=== PATIENT | male | born 1940 | race Caucasian/White ===

== ENCOUNTER 2025-02-18 18:32 | Inpatient (IN) | payer OTHER, SELFPAY ==
[2025-02-18] VITALS (20 sets, daily range): BP systolic 112–148; BP diastolic 81–112; BMI 24.7
[2025-02-18 15:37] LABS: Hematocrit 36.9 % (37.0-47.0); Hemoglobin 12.2 g/dL (12.0-16.0); Mean Corp Hgb Conc. 33.1 g/dL (33.0-37.0); Mean Corpuscular Volume 82.2 fL (81.0-99.0); Nucleated Red Blood Cells % 0 %; Platelet Count 285 10^3/uL (130-400); Red Cell Dist. Width 16.3 % (11.5-14.5)
[2025-02-18 15:51] LABS: INR 3.65; PT 36.0 Sec (11.4-14.6)
[2025-02-18 16:18] LABS: Troponin I 0.068 ng/ml
[2025-02-18 16:21] LABS: ALT (SGPT) 27 U/L (0-35); AST (SGOT) 45 U/L (14-36); Albumin 3.5 g/dl (3.5-5.0); Alkaline Phosphatase 374 U/L (38-126); Blood Urea Nitrogen 31 mg/dl (7-17); Calcium 9.5 mg/dl (8.4-10.2); Carbon Dioxide 31 mmol/L (22-30); Chloride 101 mmol/L (98-107); Estimated Creatinine Clearance 55 ml/min; Glucose 115 mg/dl (70-99); Potassium 3.3 mmol/L (3.5-5.1); Sodium 137 mmol/L (135-145); Total Protein 6.1 g/dl (6.3-8.2); eGFR > 60.00
--- NOTE | 2025-02-18 16:59 | ED.GENMED ---
History of Present Illness
General
Chief Complaint: Weakness
Source: patient
Exam Limitations: none
Time Seen by Provider: 02/18/25 16:02
Nursing documentation reviewed up to this point in time: agreed with
History of Present Illness
History of Present Illness:
Note:
CHIEF COMPLAINT(S)
Weakness and shakiness following a fall.
HISTORY OF PRESENT ILLNESS
The patient is an 84-year-old male with a history of atrial fibrillation who presents with weakness and shakiness noted following a slip on a mat at home, requiring neighbors to assist him. The patient describes having a 'monitor on the chest,'
which is a seven-day cardiac rehabilitation program director for tracking atrial fibrillation. The patient is on warfarin therapy due to this condition. Upon evaluation, he was noted to have rapid atrial fibrillation and signs of heart failure characterized by pulmonary
fluid accumulation. Initial laboratory tests indicated a low potassium level, necessitating potassium supplementation. The treatment plan includes administration of medications to control heart rate and the use of diuretics like Lasix to manage
fluid overload. The patient will be admitted to the hospital for overnight observation and further management.
CHRONIC MEDICAL CONDITIONS SIGNIFICANTLY AFFECTING CARE
- Atrial Fibrillation
MEDICATIONS
The patient is currently on warfarin for atrial fibrillation.
REVIEW OF SYSTEMS
- Cardiovascular: Experiences rapid atrial fibrillation.
- Respiratory: Exhibits signs of heart failure with fluid in the lungs.
- Musculoskeletal: Experienced a fall, leading to weakness and shakiness.
PHYSICAL EXAM
General: Afebrile.
Cardiovascular: Tachycardia with irregular rhythm.
Respiratory: Presence of pulmonary rales bilaterally.
Gastrointestinal: Abdomen soft, non-distended.
Neurological: Alert and oriented to person, place, time, and situation. No signs of trauma.
PLAN
- Administer medication to slow heart rate.
- Start potassium supplementation to correct hypokalemia.
- Administer Lasix to manage pulmonary edema.
- Admit to hospital for observation and management.
- Consult with internal medicine team and hospitalists.
DIFFERENTIAL DIAGNOSIS
The Differential Diagnosis includes, in no particular order and is not limited to:
1. Atrial fibrillation with rapid ventricular response
2. Heart failure exacerbation
3. Electrolyte imbalance (Hypokalemia)
4. Cardiac arrhythmia
5. Syncope
6. Orthostatic hypotension
7. Hypertensive emergency
8. Acute myocardial infarction
9. Transient ischemic attack
10. Medication side effects.
CARE-UPDATE
02/18/25 - 17:20
The patient is an 84-year-old male with CHF exacerbation and rapid atrial fibrillation. The patient has been admitted to the hospitalist service. Notably, the patient is experiencing hypokalemia, and potassium repletion has been initiated. The
treatment plan includes starting a diltiazem drip to manage the atrial fibrillation. Close monitoring of electrolyte levels and cardiac status is recommended to evaluate the efficacy of these interventions.
CARE-UPDATE
02/18/25 - 17:20
Moderate pulmonary edema noted on cxr. Adjust diuretics dosage to manage fluid levels; monitor patient for respiratory distress and oxygen saturation. Consider follow-up imaging to assess treatment response.
EKG
My independent EKG interpretation is:
- Rhythm: Rapid atrial fibrillation
- Heart Rate: 127 bpm
- QRS Duration: Normal
- QT Interval: Normal
- Abnormalities: Incomplete repulinal branch block, premature ventricular contractions
Disposition:
SUMMARY OF ENCOUNTER
The patient, an 84-year-old male with a history of atrial fibrillation, presented to the emergency department experiencing weakness and shakiness following a fall. Further evaluation revealed rapid atrial fibrillation and signs of heart failure,
including pulmonary fluid accumulation. Hypokalemia was identified through laboratory tests. Management involved administration of medications to control heart rate, supplementation of potassium, and use of diuretics to manage fluid overload.
DISPOSITION
Admit to hospitalist with a condition noted as fair. Patient requires an admission to an Intermediate Care Unit (IMU) bed for monitoring and management.
ASSESSMENT
The patient is experiencing rapid atrial fibrillation, congestive heart failure (CHF) exacerbation, and hypokalemia.
EMERGENCY TREATMENTS ADMINISTERED
Potassium was administered orally to address the hypokalemia.
MANAGEMENT OF THE PATIENTS CARE WAS DISCUSSED WITH
Consultations and discussions were held with the internal medicine team and hospitalists for the admission and ongoing management of the patients condition.
PLAN
The patient will be administered medication to slow the heart rate, continue potassium supplementation to correct hypokalemia, and receive furosemide (Lasix) to manage pulmonary edema. Close monitoring of electrolyte levels and cardiac status is
planned to ensure the efficacy of treatments.
INDEPENDENT REVIEW OF LABS AND INTERPRETATION OF TESTS
My independent review of labs indicates hypokalemia. This finding directly impacts the clinical decision-making process and warrants potassium supplementation.
MEDICATION RECONCILIATION
Potassium was administered orally to treat hypokalemia as part of the emergency department interventions.
MEDICAL DECISION MAKING
- Complexity of Data Reviewed: Chronic conditions affecting care include atrial fibrillation. Differential diagnoses considered included rapid atrial fibrillation with ventricular response, heart failure exacerbation, and electrolyte imbalance
(hypokalemia).
- Data:
- Category 1: Labs reviewed for electrolyte levels showing hypokalemia.
- Category 3: Discussion of management with hospitalist service and internal medicine team.
- Risk: Prescription medication management and decisions regarding hospital admission and close monitoring due to potential risk of complications from rapid atrial fibrillation and heart failure exacerbation.
DIAGNOSIS
- Rapid Atrial Fibrillation (ICD-10: I48.0)
- Congestive Heart Failure Exacerbation (ICD-10: I50.9)
- Hypokalemia (ICD-10: E87.6)
Phy Exam
Physical Exam
Physical Exam:
.
Course
Orders/Labs/Results
Orders:
Orders
02/18/25 15:25
Electrocardiogram (*1) Urgent
Reason for Study: Chest Pain
Cardiac Monitoring- Treatment ONCE
EKG- Treatment ONCE
02/18/25 15:29
Complete Blood Count/With Diff Urgent
Comprehensive Metabolic Panel Urgent
Magnesium Urgent
Comment: ADD ON
NT-proBNP Urgent
Comment: BNP ADDED ON BY FLOOR 3:50PM 02-18-25
PT/INR [Prothrombin Time] Urgent
Troponin I Urgent
02/18/25 15:51
Add On- LAB Urgent
Comments:: BNP green in lab
Tests Added?: BNP
02/18/25 15:52
CXR2 [CR Chest - 2 Views ] Urgent
Comment:
Reason For Exam: short of breath
02/18/25 17:01
Add On- LAB Urgent
Tests Added?: magnesium
Potassium Chloride 10% Elixir [KCl Elixir] 40 meq PO NOW STA
02/18/25 17:16
Diltiazem 125 mg/125 ml Nss [Cardizem] 125 mg in 125 ml IV NOW
Initial dose in mg/hr, then titrate:: 5
Titrate to keep:: Heart rate 80-100 bpm
Titrate by mg/hr:: 5 mg/hr
Frequency of titrations (minutes):: 15
Maximum dose in mg/hr:: 15
Diltiazem HCl [Cardizem] 10 mg IV NOW STA
02/18/25 17:52
Admit/Transfer Patient As Directed
Co-Sign Provider:
Level of Care: Inpatient admission
Assign to:: IVU
Physician / Group: Dwight
Transfer to: Telemetry
Diagnosis: Rapid afib and CHF
Reason for Telemetry: Acute Heart Failure
Date to Stop Telemetry: 02/21/25
Time to Stop Telemetry: 11:00
Reason for Hospitalization: See progress note
Expected length of stay greater than two midnights?: Yes
ELOS- Estimated Length of Stay in days: 3
I certify the patient meets the requirements for IP care: Yes
PRN Pain Medication Management As Directed
May give lesser potent ordered pain med per pt: Yes
preference::
Protocol:: Medication orders for pain may be administered in a
manner that supports deferring to patient preference
when the pt is:
- Requesting an ordered lesser potent pain medication.
Least to most potent pain medications are defined
as: acetaminophen < NSAID < tramadol < opioids
(morphine, oxycodone, hydromorphone).
- Requesting a lesser dose of the same medication IF
ORDERED.
- Requesting a less intrusive route of administration
if both routes are prescribed by the provider (PO <
IV).
02/18/25 17:54
Code Status As Directed
Resuscitation Status: Full Code
02/21/25 11:00
DC Protocol for Telemetry ONCE
Abnormal Lab Results
02/18/25
15:29
Hct 36.9 L %
(37.0-47.0)
RDW 16.3 H %
(11.5-14.5)
Abs Immat Gran (auto) 0.1 H 10^3/uL
(0-0.05)
Absolute Neuts (auto) 8.8 H 10^3/uL
(1.4-6.5)
Absolute Lymphs (auto) 0.5 L 10^3/uL
(1.2-3.4)
Absolute Monos (auto) 1.2 H 10^3/uL
(0.1-0.6)
Immature Gran % 0.6 H %
(0-0.5)
Neutrophils % 82.7 H %
(42.2-75.2)
Lymphocytes % 4.7 L %
(20.5-51.1)
Monocytes % 11.5 H %
(1.7-9.3)
PT 36.0 H Sec
(11.4-14.6)
Potassium 3.3 L mmol/L
(3.5-5.1)
Carbon Dioxide 31 H mmol/L
(22-30)
BUN 31 H mg/dl
(7-17)
Glucose 115 H mg/dl
(70-99)
AST 45 H U/L
(14-36)
Alkaline Phosphatase 374 H U/L
(38-126)
Troponin I 0.068 H* ng/ml
Total Protein 6.1 L g/dl
(6.3-8.2)
02/18/25 15:29
02/18/25 15:29
Vital Signs
Initial and Last Documented VS:
Initial Vital Signs
Temp Pulse Resp BP Pulse Ox
98.4 F 134 20 145/109 93
02/18/25 15:31 02/18/25 15:31 02/18/25 15:31 02/18/25 15:31 02/18/25 15:31
Last Documented Vital Signs
Temp Pulse Resp BP Pulse Ox
98.1 F 110 16 118/86 94
02/18/25 20:01 02/18/25 20:01 02/18/25 20:01 02/18/25 20:01 02/18/25 20:01
*Pulse Oximetry
SaO2: 95
Oxygen Mode of Delivery: Room air
Patient hypoxic: no
*Critical Care Note
Total Time (30-74mins, 75-104mins- exclusive of procedures): 32
comment:
Critical care statement: A total of 32 minutes of critical care time was provided for this patient. This includes management of unstable vital signs, evaluation of the patient at bedside, reviewing the patient's pertinent medical records, discussion
with consultants, review of old EKGs and review of pertinent medical records. This time with separate from time utilized to perform the aforementioned documented procedures
ED Attending Note
-
Portions of this chart may have been created with voice recognition software.� Occasional wrong word or��sound alike� substitutions may have occurred due to the inherent limitations of voice recognition software.
Discharge Plan
Departure
Patient Disposition: Admit
Date of Disposition: 02/18/25
Time of Disposition: 17:21
Admit to: IMU
Presentation/result/management discussed w/ accepting MD/DO: Hospitalist
Patient with high blood pressure during this ER visit?: Yes
Condition: Fair
Discharge Problem:
Atrial fibrillation with rapid ventricular response, Acute exacerbation of CHF (congestive heart failure), Acute hypokalemia
Interventions
Interventions:
*Risk Screen - Suicide Last Done: 02/18/25 15:43
*General Assessment Last Done: 02/18/25 15:43
*Neglect/Abuse Screening Last Done: 02/18/25 15:43
*ED- Fall Risk Assessment Last Done: 02/18/25 15:43
*ED COVID-19 Vaccine History Last Done: 02/18/25 15:43
*Nursing Disposition Last Done: 02/18/25 20:05
ED- Cardiac Assessment Last Done: 02/18/25 15:47
ED- Neurological Assessment Last Done: 02/18/25 15:47
ED- Pulmonary Assessment Last Done: 02/18/25 15:47
Discharge Date and Time
Discharge Date/Time: 02/18/25 20:05
[2025-02-18] MEDS: KCL ELIXIR 40 MEQ PO (17:25)
[2025-02-18] MEDS: CARDIZEM 10 MG IV (17:30)
[2025-02-18] MEDS: CARDIZEM 125 IV (17:37)
[2025-02-18 17:50] LABS: Magnesium 1.9 mg/dl (1.6-2.3)
--- NOTE | 2025-02-18 18:01 | HPS.HSE ---
Family Physician
-
Family Physician:
Chief Complaint
-
Acute dizziness, weakness and fall at home
History of Present Illness
Patient states today he was on the toilet seat and when he got up he was dizzy, lightheaded. His legs felt weak. He felt wobbly on his feet and went down. No loss of consciousness. was at home called the neighbors and they called the
ambulance.
He is noted to be in rapid A-fib with clinical picture suggestive of heart failure.
Noted to have A-fib many years on Coumadin. No prior history of breakthrough symptomatic A-fib. No pacemaker. On beta-naif.
tells that cardiology mention about heart failure in the last 3 weeks. He was put on diuretic. He apparently had an echo last week the results of which are not known. Denies any prior history of PR or coronary stents.
He does have chronic lower extremity edema and wears compression stockings. He does not think he gained weight.
He feels he was in his usual state of health before today.
Denies orthopnea or PND. No chest pain. Denies any palpitations. Denies any shortness of breath at rest. noticed some trouble with the breathing when the incident happened and she thinks that he was getting worked up because of the incident
above.
No nausea vomiting. No fever or chills.
Medical History
Past Medical History
Past Medical History: Reports Arrhythmia, CHF and HTN; Denies CAD or CVA
Past Surgical History: Reports None
Social History
Tobacco: Non-smoker
Alcohol: None
Personal:
Living: With Family
Family History
Family History: Not pertinent
Allergies / Home Medications
Allergies reflects when Allergies were last updated in [facility].
Home Medications with original date entered in [facility]
Allergy/Medication List:
Allergies
Allergy/AdvReac Type Severity Reaction Status Date / Time
No Known Allergies Allergy Verified 02/18/25 15:30
Home Medications
acetaminophen 325 mg tablet (Tylenol) 650 mg PO Q6HPRN PRN mild pain 02/18/25
metoprolol succinate 50 mg tablet,extended release 24 hr (Toprol XL) 50 mg PO QPM 02/18/25
metoprolol succinate 50 mg tablet,extended release 24 hr (Toprol XL) 100 mg PO DAILY 02/18/25
sennosides 8.6 mg tablet (senna) 17.2 mg PO DAILYPRN PRN constipation 02/18/25
therapeutic multivitamin 1 tab PO DAILY 02/18/25
torsemide 20 mg tablet 20 mg PO DAILY 02/18/25
warfarin 2.5 mg tablet 2.5 mg PO TUTHSA@199902/18/25
warfarin 2.5 mg tablet 5 mg PO SUMOWEFR@199902/18/25
Review of Systems
-
A 12 point ROS was completed and negative except as noted: Yes
Physical Exam
Vital Signs
Vital Signs
Temp Pulse Resp BP Pulse Ox
98.6 F 116 29 129/96 92
02/18/25 15:46 02/18/25 17:45 02/18/25 17:45 02/18/25 17:45 02/18/25 17:45
Physical Exam
General: Comfortable
Respiratory: Crackles (bibasilar), Non Labored Respirations and Other (decreased BS at bases); No Wheezes or Accessory Resp Muscle Use
Cardiac: S1/S2, Irregular Rhythm, Tachycardia and JVD
GI: Soft, Non Tender and No Hepatosplenomegaly
Musculoskeletal: Edema, Left Lower Extremity and Edema, Right Lower Extremity (Bilateral lower extremity edema 2+)
Neuro: AO x 3 and No Motor Deficits; No Slurred Speech, Facial Droop or Tremors
Psych: Calm; No Confused
Laboratory Results
-
02/18/25 15:29
02/18/25 15:29
Laboratory Results
PT 36.0 Sec (11.4-14.6) H 02/18/25 15:29
INR 3.65 02/18/25 15:29
Total Bilirubin 1.0 mg/dl (0.2-1.3) 02/18/25 15:29
AST 45 U/L (14-36) H 02/18/25 15:29
ALT 27 U/L (0-35) 02/18/25 15:29
Alkaline Phosphatase 374 U/L (38-126) H 02/18/25 15:29
Troponin I 0.068 ng/ml H* 02/18/25 15:29
Data Reviewed
-
Diagnostic Radiology: Report Reviewed by me (cxr)
Lab Data: Labs Reviewed by me
Impression/Plan
-
Acute episode of dizziness/lightheadedness followed by a fall without loss of consciousness I suspect may be A-fib RVR related.
Nonfocal neurologically. Blood pressure at this current time stable.
Check orthostatic vital signs. Optimize A-fib and heart failure on follow-up.
Prior to this incident today he was independent with his activities of daily living.
Atrial fibrillation with RVR
Currently with heart failure concurrently but hemodynamically stable. Known to have A-fib on Coumadin.
Continue with IV Cardizem drip initiated in the ER. Continue with his home dose of beta-naif. Hold Coumadin due to supratherapeutic INR.
Check TSH.
Follow on telemetry.
Acute heart failure
Unknown EF.
Chest x-ray with moderate pulmonary edema. Blood pressure okay.
Hold his torsemide. Start on IV Lasix. He got potassium supplementation before IV Lasix. His potassium was 3.3. Check magnesium.
Obtain recent echocardiogram report done last week from primary sanitary aide office.
Consult cardiology.
Abnormal troponins-troponin in indeterminate range. Trend troponins.
Abnormal LFTs
Probably related to heart failure. Asymptomatic from GI standpoint. No hepatomegaly. Follow with diuresis and if no improvement consider abdominal imaging.
Hypokalemia-replete
Full code
Discussed with at bedside.
[2025-02-18] MEDS: LASIX 40 MG IV (21:12)
[2025-02-18] MEDS: TOPROL XL 50 MG PO (22:34)
[2025-02-19] VITALS (13 sets, daily range): BP systolic 83–146; BP diastolic 45–110; PULSE 107–120; BMI 24.1
--- NOTE | 2025-02-19 00:18 | PTCARENOTE ---
Rec'd pt as admission from ED. Pt AAO*2 (disoriented to time at baseline), VSS, and afib on TELE monitor. Pt denies any pain or discomfort. Admission complete with pt and via telephone. PT with cardizem infusing as ordered. Bed alarm
applied for safety. See MAR and flowchart for full pt care and assessment. Pt oriented to unit by RN and call he within reach.
[2025-02-19 05:51] LABS: INR 3.28; PT 33.2 Sec (11.4-14.6)
[2025-02-19 06:00] LABS: ALT (SGPT) 27 U/L (0-50); AST (SGOT) 44 U/L (17-59); Albumin 3.4 g/dl (3.5-5.0); Alkaline Phosphatase 375 U/L (38-126); Blood Urea Nitrogen 27 mg/dl (9-20); Calcium 9.3 mg/dl (8.4-10.2); Carbon Dioxide 33 mmol/L (22-30); Chloride 101 mmol/L (98-107); Estimated Creatinine Clearance 59 ml/min; Glucose 108 mg/dl (70-99); HDL Cholesterol 44 mg/dl; LDL Cholesterol, Calculated 100 mg/dl; Magnesium 1.9 mg/dl (1.6-2.3); Potassium 3.5 mmol/L (3.5-5.1); Sodium 140 mmol/L (135-145); Total Protein 5.8 g/dl (6.3-8.2); Very Low Density Lipoprotein 15 mg/dl (0-30); eGFR > 60.00
[2025-02-19] MEDS: CARDIZEM 125 IV (06:42)
[2025-02-19] MEDS: LASIX 40 MG IV ×2 (08:03→17:05)
[2025-02-19] MEDS: TOPROL XL 100 MG PO (08:04)
--- NOTE | 2025-02-19 08:52 | CON.CAR ---
Consultation
Consultation Request
Date/Time Consultation Requested: 02/18/2025 at 20:22
Date/Time Consultation Performed: 02/19/2025 at 8:00
Requesting Provider: Buddy Quintanilla MD
Performing Provider: Kojo Pelaez MD
Reason for Consultation: CHF, Afib
Medical History
-
Chief Complaint: legs weak
History of Present Illness:
84-year-old man with reported history of atrial fibrillation on warfarin, possible newly diagnosed CHF who presents for leg weakness. History is limited as patient has some component of dementia and no family is present at the time of my interview.
I reviewed ER documentation which notes that he had weakness and shakiness following a slip on a mat at home. He apparently follows with [place] [facility]ology and was recently put on torsemide as an outpatient. Also had a recent echocardiogram. I
do not have any of these records. On my interview, he reports leg swelling and does endorse a feeling of unsteadiness on his feet. He is also dyspneic with exertion. He denies chest pain.
Past Medical History
Past Medical History: Arrhythmias (A-fib) and CHF
Family History
Family History: Reviewed & Not Pertinent
Allergies / Home Medications
Allergy/AdvReac Type Severity Reaction Status Date / Time
No Known Allergies Allergy Verified 02/18/25 15:30
�Medication �Instructions �Recorded �Confirmed �Type
acetaminophen 325 mg tablet 650 mg PO Q6HPRN PRN mild pain 02/18/25 02/18/25 History
(Tylenol)
metoprolol succinate 50 mg 50 mg PO QPM 02/18/25 02/18/25 History
tablet,extended release 24 hr
(Toprol XL)
metoprolol succinate 50 mg 100 mg PO DAILY 02/18/25 02/18/25 History
tablet,extended release 24 hr
(Toprol XL)
sennosides 8.6 mg tablet (senna) 17.2 mg PO DAILYPRN PRN 02/18/25 02/18/25 History
constipation
therapeutic multivitamin 1 tab PO DAILY 02/18/25 02/18/25 History
torsemide 20 mg tablet 20 mg PO DAILY 02/18/25 02/18/25 History
warfarin 2.5 mg tablet 2.5 mg PO TUTHSA@199902/18/25 02/18/25 History
warfarin 2.5 mg tablet 5 mg PO SUMOWEFR@199902/18/25 02/18/25 History
Review of Systems
-
Unable to obtain full review of systems at this time due to: Dementia
Physical Exam
Vital Signs
Temp Pulse Resp BP Pulse Ox
97.5 F 96 18 118/84 96
02/19/25 07:14 02/19/25 07:14 02/19/25 07:14 02/19/25 07:14 02/19/25 07:14
Lab Results
02/18/25 15:29
02/19/25 04:06
Troponin I 0.068 ng/ml H* 02/18/25 15:29
Vqb-[id number] Pept 8020 pg/ml 02/18/25 15:29
Physical Exam
General: Other (Frail, elderly male)
Respiratory: Clear and Non Labored Respirations
Cardiac: S1/S2, Irregular Rhythm and Peripheral Edema; Negative Murmur
Impression / Plan
-
84-year-old man with reported history of atrial fibrillation on warfarin and newly diagnosed CHF who presents for fall and leg weakness. Found to have atrial fibrillation with RVR and CHF exacerbation.
Logistics Administrator: [facility]
Atrial fibrillation
-Unclear chronicity. Suspect persistent if not permanent. Follows with [facility]. Records requested.
-Continue home metoprolol 100 mg a.m. and 50 mg p.m.
-Rates are well-controlled right now on diltiazem drip at 5. He got 100 mg metoprolol at 8 AM. Stop diltiazem drip in 1 hour. If HR >120 bpm, give an extra 50mg Metoprolol
-INR supratherapeutic on admission. Hold Warfarin until needed
CHF
-Unknown EF. Reportedly had a recent echocardiogram. Records requested.
-Examines overloaded with pulmonary edema on CXR and elevated NT proBNP
-Continue IV Lasix
-Decide on GDMT once we have outside echo report
Abnormal troponin
-Suspect due to nonischemic myocardial injury in the setting of A-fib and heart failure
Data Reviewed
-
EKG: Tracing Personally Visualized and interpreted (afib; tele HR 80-90s), Report Reviewed by me, Discussed with Physician and Discussed with Patient
Radiology: Image Personally Visualized and interpreted, Report Reviewed by me and Discussed with Physician
Labs: Labs Reviewed by me
Old Records: Requested
--- NOTE | 2025-02-19 11:04 | W.PN.HOSP.TC ---
Today's Communication/Plan
-
Continue with IV diuresis.
Continue to hold Coumadin. Check INR tomorrow.
Continue beta-naif. DC Cardizem drip per cardiology
Assessment / Plan
Assessment / Plan
Acute episode of dizziness/lightheadedness followed by a fall without loss of consciousness I suspect may be A-fib RVR related.
Nonfocal neurologically. Check orthostatic vital signs. Optimize A-fib and heart failure on follow-up.
Prior to this incident today he was independent with his activities of daily living.
PT eval
Atrial fibrillation with RVR
Currently with heart failure concurrently but hemodynamically stable. Known to have A-fib on Coumadin.
Continue with IV Cardizem drip per cards. Continue with his home dose of beta-naif. Hold Coumadin due to supratherapeutic INR.
TSH ok
Follow on telemetry.
Acute heart failure
Unknown EF.
Chest x-ray with moderate pulmonary edema. Blood pressure okay.
Hold his torsemide. cw IV Lasix. Follow electrolytes
Obtain recent echocardiogram report done last week from primary print shop assistant office.
Appreciate cardiology input
Abnormal troponins-troponin in indeterminate range. No chest pain. Suspect nonischemic myocardial injury
Abnormal LFTs
Probably related to heart failure. Asymptomatic from GI standpoint. No hepatomegaly. Follow with diuresis and if no improvement consider abdominal imaging.
Full code
Discussed with RN
Anticipated Discharge: 24 - 48 hours
Subjective/Interval History
-
Date of Service: February 19, 2025
No further dizziness. Denies any palpitations. No chest pain or shortness of breath.
Objective Data
-
Labs:
Laboratory Results
02/19/25
04:06
PT 33.2 H
INR 3.28
Sodium 140
Potassium 3.5
Chloride 101
Carbon Dioxide 33 H
BUN 27 H
Creatinine 0.9
Glucose 108 H
Calcium 9.3
Total Bilirubin 0.9
AST 44
ALT 27
Alkaline Phosphatase 375 H
Vital Signs:
Vital Signs
Temp Pulse Resp BP Pulse Ox
97.5 F 96 18 118/84 96
02/19/25 07:14 02/19/25 07:14 02/19/25 07:14 02/19/25 07:14 02/19/25 07:14
I&O
02/18/25 02/19/25 02/20/25
06:59 06:59 06:59
Intake Total 480 / 480
Output Total 2200 / 2200
Balance -1720 / -1720
Physical Exam
-
General: Comfortable
Respiratory: Crackles (bibasilar) and Non Labored Respirations; Negative Wheezes or Accessory Resp Muscle Use
Cardiac: S1/S2, Irregular Rhythm and Tachycardic
GI: Soft
Musculoskeletal: Edema, Right Lower Extrem and Edema, Left Lower Extrem
Neuro: AO x 3
Psych: Calm
Data Reviewed
-
Labs: Labs Reviewed by me
--- NOTE | 2025-02-19 16:00 | SUR.OPER ---
Pt received this am forgetful and disoriented to time and place. Pt denies any pain or sob. Cardeizem IV discontinued as ordered this am.Remains in afib, rate in the 80's to 100's, 120's at times. Pt assisted oob to the chair with 2 assists and the
walker. Gait unsteady and ataxic. Pt's visiting in the afternoon.
[2025-02-19] MEDS: TOPROL XL 50 MG PO (17:11)
--- NOTE | 2025-02-19 19:00 | SUR.OPER ---
Pt disoriented and trying to get up oob stating he was going home and wasn't staying the night. Pt getting agitated and upset. Dr. Quintanilla notified and medicated with valium 2mg IV and sent for a CT of the head.
[2025-02-19] MEDS: VALIUM INJECTION 2 MG IV (19:06)
--- NOTE | 2025-02-19 22:26 | PTCARENOTE ---
Rec'd pt at change of shift. Pt disoriented to time and place but oriented to self and (new to previous shift). Rec'd verbal order for head CT without contrast for confusion. Pt escorted down to ED CT by RN, Valium given as ordered. Pt Afib
on TELE monitor with HR in the 120-130's. Pt resting with call he in reach and bed alarm active. See Mar and flowchart for full pt care and assessment.
[2025-02-20] VITALS (10 sets, daily range): BP systolic 105–127; BP diastolic 77–97; BMI 22.7
[2025-02-20 06:55] LABS: INR 2.64; PT 28.1 Sec (11.4-14.6)
[2025-02-20 08:22] LABS: Blood Urea Nitrogen 28 mg/dl (9-20); Calcium 9.3 mg/dl (8.4-10.2); Carbon Dioxide 40 mmol/L (22-30); Chloride 99 mmol/L (98-107); Estimated Creatinine Clearance 66 ml/min; Glucose 110 mg/dl (70-99); Potassium 3.3 mmol/L (3.5-5.1); Sodium 139 mmol/L (135-145); eGFR > 60.00
[2025-02-20] MEDS: TOPROL XL 100 MG PO ×2 (09:43→20:30)
[2025-02-20] MEDS: LASIX 40 MG IV (09:43)
--- NOTE | 2025-02-20 10:08 | W.PN.HOSP.TC ---
Today's Communication/Plan
-
Decrease dose of Lasix. Replete potassium.
Assessment / Plan
Assessment / Plan
Acute episode of dizziness/lightheadedness followed by a fall without loss of consciousness I suspect may be A-fib RVR related.
Optimize A-fib and heart failure on follow-up.
Prior to this incident today he was independent with his activities of daily living.
cw PT eval
Atrial fibrillation with RVR
Currently with heart failure concurrently but hemodynamically stable. Known to have A-fib on Coumadin.
Off of IV Cardizem drip now. Continue with his beta-naif. Resume Coumadin as INR is therapeutic today
TSH ok
Follow on telemetry.
Acute heart failure
Unknown EF.
Chest x-ray with moderate pulmonary edema. Blood pressure okay.
Improved weight.
Hold his torsemide. Decrease dose of IV Lasix to once a day today
Obtain recent echocardiogram report done last week from primary manager of software development office.
Appreciate cardiology input
Abnormal troponins-troponin in indeterminate range. No chest pain. Suspect nonischemic myocardial injury
Abnormal LFTs
Probably related to heart failure. Asymptomatic from GI standpoint. No hepatomegaly. Follow with diuresis and if no improvement consider abdominal imaging.
Hypokalemia replace
Full code
Discussed with RN
Anticipated Discharge: 24 - 48 hours
Subjective/Interval History
-
Date of Service: February 20, 2025
Patient was confused last evening but okay today. He is alert and oriented to place and the year but not to the day of the month. No agitation.
Denies any chest pain, palpitations or shortness of breath.
Objective Data
-
Labs:
Laboratory Results
02/20/25 02/20/25
06:30 07:40
PT 28.1 H
INR 2.64
Sodium Cancelled 139
Potassium Cancelled 3.3 L
Chloride Cancelled 99
Carbon Dioxide Cancelled 40 H
BUN Cancelled 28 H
Creatinine Cancelled 0.8
Glucose Cancelled 110 H
Calcium Cancelled 9.3
Vital Signs:
Vital Signs
Temp Pulse Resp BP Pulse Ox
98 F 128 16 120/94 90
02/20/25 07:00 02/20/25 10:00 02/20/25 07:00 02/20/25 09:43 02/20/25 07:00
I&O
02/19/25 02/20/25 02/21/25
06:59 06:59 06:59
Intake Total 480 / 480 240 / 240 100 / 100
Output Total 2200 / 2200 3800 / 3800
Balance -1720 / -1720 -3560 / -3560 100 / 100
Physical Exam
-
General: No Apparent Distress
HEENT: Moist Mucous Membranes
Respiratory: Crackles (Few bibasal) and Non Labored Respirations; Negative Wheezes or Accessory Resp Muscle Use
Cardiac: S1/S2, Irregular Rhythm and Tachycardic
GI: Soft
Musculoskeletal: Edema, Right Lower Extrem and Edema, Left Lower Extrem (improved)
Neuro: Awake, Alert and Oriented
Psych: Calm; Negative Agitated
Data Reviewed
-
Labs: Labs Reviewed by me
[2025-02-20] MEDS: KCL 40 MEQ PO (10:23)
--- NOTE | 2025-02-20 12:52 | PTCARENOTE ---
Rec'd pt at handoff. Pt is alert and oriented to place and year. Tele- afib. HR 90-100s. Pt assisted OOB to chair w/ assist x2 and RW. Pt has no complaints at this time. Currently OOB in chair; call neri w/in reach.
--- NOTE | 2025-02-20 13:45 | W.PN.CD ---
Today's Communication / Plan
-
Agree with decreasing Lasix to IV once daily
Increase metoprolol to 100 mg twice daily for goal HR <110 bpm
Impression / Plan
-
84-year-old man with reported history of atrial fibrillation on warfarin and newly diagnosed CHF who presents for fall and leg weakness. Found to have atrial fibrillation with RVR and CHF exacerbation.
Pharmacist In Charge Owner: GUERO Ostrander
Atrial fibrillation
-Unclear chronicity. Suspect persistent if not permanent. Follows with ATC. Records requested.
-Heart rates are suboptimally controlled.
-Increase home metoprolol to 100 mg twice daily
-INR supratherapeutic on admission, now therapeutic. Resume warfarin.
CHF
-Unknown EF. Reportedly had an echocardiogram last week with [facility]C. Records requested.
-Examines overloaded with pulmonary edema on CXR and elevated NT proBNP
-Continue IV Lasix. Was net -4 L to twice daily dosing. Decreased to daily.
-Decide on GDMT once we have outside echo report
Abnormal troponin
-Suspect due to nonischemic myocardial injury in the setting of A-fib and heart failure
Subjective: No CV complaints.
Physical Exam
Vital Signs/Labs
Vital Signs
Temp Pulse Resp BP Pulse Ox
98.0 F 96 16 105/77 93
02/20/25 11:53 02/20/25 12:00 02/20/25 11:53 02/20/25 11:45 02/20/25 11:53
02/19/25 02/20/25 02/21/25
06:59 06:59 06:59
Actual Weight 158 lb 4.67 oz 149 lb 7.574 oz
02/18/25 15:29
02/20/25 07:40
PT 28.1 Sec (11.4-14.6) H 02/20/25 06:30
INR 2.64 02/20/25 06:30
Magnesium 1.9 mg/dl (1.6-2.3) 02/19/25 04:06
Triglycerides 77 mg/dl (10-149) 02/19/25 04:06
LDL Cholesterol, Calc 100 mg/dl 02/19/25 04:06
VLDL Cholesterol, Calc 15 mg/dl (0-30) 02/19/25 04:06
HDL Cholesterol 44 mg/dl 02/19/25 04:06
02/18/25
15:29
Rvm-X-Yaikuqsqqjq Pept 8020
LAB Results
02/18/25
15:29
Troponin I 0.068 H*
Physical Exam
Constitutional: No acute distress and Comfortable
Cardiovascular: Rhythm/rate is irregular, Pedal edema present, S1S2 is normal and Murmur/rub/gallop absent
Respiratory: Respiratory effort normal and Lungs clear to auscul.
Data Reviewed
-
Date of Service: February 20, 2025
Medical Decision Making: Reviewed Test Results, Independent Historian Assessment, Test Interpretation and Review of Case with other Provider
EKG: Tracing Personally Visualized and interpreted
Labs: Labs Reviewed by me
[2025-02-20] MEDS: COUMADIN 2.5 MG PO (17:18)
[2025-02-20] MEDS: TYLENOL 650 MG PO ×2 (20:29)
[2025-02-20] MEDS: MELATONIN 3 MG PO ×2 (20:30)
[2025-02-21] VITALS (8 sets, daily range): BP systolic 94–125; BP diastolic 80–97; PULSE 122; O2SAT 91; BMI 22.2
[2025-02-21 03:22] LABS: INR 2.23; PT 24.8 Sec (11.4-14.6)
[2025-02-21 03:34] LABS: ALT (SGPT) 24 U/L (0-50); AST (SGOT) 35 U/L (17-59); Albumin 3.3 g/dl (3.5-5.0); Alkaline Phosphatase 354 U/L (38-126); Blood Urea Nitrogen 31 mg/dl (9-20); Calcium 9.6 mg/dl (8.4-10.2); Carbon Dioxide 37 mmol/L (22-30); Chloride 98 mmol/L (98-107); Estimated Creatinine Clearance 59 ml/min; Glucose 115 mg/dl (70-99); Potassium 3.8 mmol/L (3.5-5.1); Sodium 138 mmol/L (135-145); Total Protein 5.9 g/dl (6.3-8.2); eGFR > 60.00
--- NOTE | 2025-02-21 04:49 | PTCARENOTE ---
Pt AFib on monitor with HR 90-130BPM. SOB with exertion. C/o rt side abdominal pain. Tylenol PRN given. pt ambulates with x 2 assist and RW. Safety measures in place, call he w/in reach
--- NOTE | 2025-02-21 07:40 | W.PN.HOSP.TC ---
Today's Communication/Plan
-
See plan
Assessment / Plan
Assessment / Plan
Physical Exam
General: No Apparent Distress
HEENT: Moist Mucous Membranes
Respiratory: Crackles (Few bibasilar)
Cardiac: S1/S2, Irregular Rhythm and Tachycardic
GI: Soft. Nontender. Positive bowel sounds.
Musculoskeletal: Edema, Right Lower Extremity; and Edema, Left Lower Extremity (improved)
Neuro: Awake, Alert and Oriented x3
Psych: Calm; Negative Agitated
Assessment/Plan
Acute episode of dizziness/lightheadedness followed by a fall without loss of consciousness -- suspected that it may be A-fib RVR related.
Optimize A-fib and heart failure on follow-up.
Prior to this incident above, patient was independent with his activities of daily living.
Continue with PT evaluation
Atrial fibrillation with RVR
Currently with heart failure concurrently but hemodynamically stable. Known to have A-fib on Coumadin.
Off of IV Cardizem drip now. Continue with beta-naif which was increased -- may need additional rate control medications: awaiting echocardiogram report to decide on medications
Continue Coumadin
TSH ok
Follow on telemetry.
Acute heart failure
Unknown EF.
Chest x-ray with moderate pulmonary edema. Blood pressure okay.
Improved weight.
Hold his torsemide. Continue IV Lasix
Obtain recent echocardiogram report done last week from primary rn mobile office.
Appreciate cardiology input
Hypokalemia
Abnormal troponins-troponin in indeterminate range. No chest pain. Suspect nonischemic myocardial injury
Abnormal LFTs
Probably related to heart failure. Asymptomatic from GI standpoint. No hepatomegaly. Follow with diuresis and if no improvement consider abdominal imaging.
Hypokalemia replace
Full code
Discussed with RN
Anticipated Discharge: > 48 hours
Subjective/Interval History
-
Date of Service: February 21, 2025
Patient was seen and examined. He denied any central chest pain or new shortness of breath.
Objective Data
-
Labs:
Laboratory Results
02/21/25
02:45
PT 24.8 H
INR 2.23
Sodium 138
Potassium 3.8
Chloride 98
Carbon Dioxide 37 H
BUN 31 H
Creatinine 0.9
Glucose 115 H
Calcium 9.6
Total Bilirubin 1.1
AST 35
ALT 24
Alkaline Phosphatase 354 H
Vital Signs:
Vital Signs
Temp Pulse Resp BP Pulse Ox
98.1 F 116 19 118/81 88
02/21/25 02:46 02/21/25 02:47 02/21/25 02:46 02/21/25 02:47 02/21/25 02:47
I&O
02/20/25 02/21/25 02/22/25
06:59 06:59 06:59
Intake Total 240 / 240 200 / 200
Output Total 3800 / 3800 1150 / 1150
Balance -3560 / -3560 -950 / -950
[2025-02-21] MEDS: TOPROL XL 100 MG PO ×2 (08:21→20:20)
[2025-02-21] MEDS: LASIX 40 MG IV (08:22)
--- NOTE | 2025-02-21 09:45 | WOUNDNOTE ---
RONIT RN NOTE: Patient admitted with rapid atrial fibrillation, CHF and hypokalemia. Reviewed past medical history from chart. Patient received in chair, able to stand with one assist and walker. Sacrum intact, non blanchable pink skin distally, stage
1 PI not stage 2. L side of scalp/forehead with what appears to be a skin cancer type wound. Patient has scattered scabs all over head and at this site, patient said he picked at it. Now open, base pink, small drainage, no signs of infection.
Changed small foam dressing, recommend daily change. Silicone foam applied to sacrum to protect. Air chair cushion in use. Has Accumax bed, able to turn self onto sides. Appetite good, ate half of breakfast omelet. Legs with lower edema, he states
he wears compression stockings at home. Heels are intact, blanchable red. Elevated legs while in recliner, heels are off end of recliner. When in bed, pillow under calves. L anterior m[place]ett with dry scab, suspect abrasion. Moisturized legs with
Vaseline. Patient can take air chair cushion upon discharge. Updated nurse Candice, will update wound care and recommend patient follow up with computer numerical control grinder upon discharge. Will sign off unless needed.
--- NOTE | 2025-02-21 10:46 | W.PN.CD ---
Today's Communication / Plan
-
continue IV lasix
await records, including recent echo
case mgmt c/s for GDMT
Impression / Plan
-
84-year-old man with reported history of atrial fibrillation on warfarin and newly diagnosed CHF who presents for fall and leg weakness. Found to have atrial fibrillation with RVR and CHF exacerbation.
Manifold Builder: GUERO Beaver
Atrial fibrillation
-Unclear chronicity. Suspect persistent if not permanent. Follows with ATC. Records requested.
-Heart rates are suboptimally controlled.
-Increased home metoprolol succinate to 100 mg twice daily
-may need additional rate control meds: awaiting echo report to decide on meds
-INR supratherapeutic on admission, now therapeutic. Resumed warfarin.
CHF: acute
-severe, requiring hospitalization and IV lasix with close monitoring of labs/tele
-Unknown EF. Reportedly had an echocardiogram last week with ATC. Records requested.
-Examines overloaded with pulmonary edema on CXR and elevated NT proBNP
-Continue IV Lasix. Was net -4 L to twice daily dosing. Decreased to 40mg IV daily.
-Decide on GDMT once we have outside echo report
-case mgmt consult placed for charbel fountain
Abnormal troponin
-Suspect due to nonischemic myocardial injury in the setting of A-fib and heart failure
Physical Exam
Vital Signs/Labs
Vital Signs
Temp Pulse Resp BP Pulse Ox
97.6 F 116 20 118/81 90
02/21/25 07:42 02/21/25 02:47 02/21/25 07:42 02/21/25 02:47 02/21/25 07:42
02/20/25 02/21/25 02/22/25
06:59 06:59 06:59
Actual Weight 67.8 kg
02/18/25 15:29
02/21/25 02:45
PT 24.8 Sec (11.4-14.6) H 02/21/25 02:45
INR 2.23 02/21/25 02:45
Magnesium 1.9 mg/dl (1.6-2.3) 02/19/25 04:06
Triglycerides 77 mg/dl (10-149) 02/19/25 04:06
LDL Cholesterol, Calc 100 mg/dl 02/19/25 04:06
VLDL Cholesterol, Calc 15 mg/dl (0-30) 02/19/25 04:06
HDL Cholesterol 44 mg/dl 02/19/25 04:06
02/18/25
15:29
Zel-J-Vivuktlpaka Pept 8020
LAB Results
02/18/25
15:29
Troponin I 0.068 H*
Physical Exam
Constitutional: No acute distress and Comfortable
EENT: Moist mucous membranes
Cardiovascular: Systolic murmur absent, Rhythm/rate is irregular, Pedal edema present and JVD present
Respiratory: Respiratory effort normal and Lungs clear to auscul.
Neuro/Psych: Alert
Data Reviewed
-
Date of Service: February 21, 2025
EKG: Other (Tele: A fib 110s)
Labs: Labs Reviewed by me
--- NOTE | 2025-02-21 11:09 | CM ---
Addendum entered by Yaneth Ryder 02/21/25 17:43:
[facility] and [facility] can not accept patient. Referral sent to [facility]. Awaiting to hear from [facility] and [facility]. Reviewed avilez of medications. Family would like to take to their regular An/Ssn 2 4 Operator before
making the decisions regarding Entresto and Farxiga.
Addendum entered by Yaneth Ryder 02/21/25 11:56:
Referrals sent to [facility] and [facility]. Await to see if any can accept.
Addendum entered by Yaneth Ryder 02/21/25 11:31:
Telephone call to [facility] to check on co-pay for Entresto, Farxiga and Jardiance. He still has a deductible that has to be met. So Entresto would be $502.92 until deductible has been met. After her deductible has been met his co-pay would be
$170.73 a month. Farxiga is $145.18 a month after deductible and Generic Farxiga not covered. Jardiance would be $152.37 a month. Once he mets his $2000.00 out of pocket, his medications would be free. Reviewed with spouse.
Original Note:
Reviewed chart. Met with Mr. Sosa and spoke with his spouse via phone. He states prior to admission he resides with his spouse in a two story home with two steps to enter. He states he has twelve steps to get to bedroom/full bathroom. He
states he has a powder room on the first floor. He also has a bedside commode next to his chair. He states prior to admission he ambulates with a single point cane most of the time, but uses a walker when needed. He has a walker,, sibgle point
cane, Bedside commode and wheelchair at home. He has a prescription plan and uses [facility] pharmacy. Spouse states she would like to see if he will qualify for SNF/Rehab. prior to going home. She states she would like to explore [facility], [facility], [facility]. Will make the referral once physical and occupational therapy evaluations completed. Will need authorization with his insurance. Medical work-up in progress. The discharge
plan is to go to SNF/Rehab when bed available , approved by insurance and medically stable.
--- NOTE | 2025-02-21 14:47 | W.PN.UPDATE ---
Update Note
Progress Note Update
Echo 02/08/25 faxed from [facility] cardiology office. Full echo results in physical chart, but summarized below:
LV size normal, wall thickness mildly increased, EF 50%, systolic function low normal, wall motion is normal, LA moderately dilated, RA mildly dilated, moderate MR, trivial pericardial effusion, PASP moderately elevated
--- NOTE | 2025-02-21 17:41 | PTCARENOTE ---
Pt received this am alert and oriented. Assisted to the chair for breakfast. OOB with 1 assist and the walker but unsteady on his feet. Denies any pain or sob. Room air sat 95%. Remains in afib, rate in the 100's to 130's. Tolerated oob in the chair
until after dinner then assisted back to bed.
[2025-02-21] MEDS: COUMADIN 5 MG PO (20:19)
[2025-02-21] MEDS: MELATONIN 3 MG PO (20:20)
[2025-02-22] VITALS (9 sets, daily range): BP systolic 114–135; BP diastolic 80–96; PULSE 102–142; BMI 19.6
--- NOTE | 2025-02-22 01:59 | PTCARENOTE ---
Pt AFib with HR 99-105 BPM at rest. BP stable. pt Denies any discomfort. Pt resting comfortable in the bed. Safety measures in place, call he w/in reach
[2025-02-22 04:38] LABS: INR 2.43; PT 26.4 Sec (11.4-14.6)
[2025-02-22 05:03] LABS: Blood Urea Nitrogen 33 mg/dl (9-20); Calcium 9.0 mg/dl (8.4-10.2); Carbon Dioxide 34 mmol/L (22-30); Chloride 101 mmol/L (98-107); Estimated Creatinine Clearance 64 ml/min; Glucose 112 mg/dl (70-99); Magnesium 1.9 mg/dl (1.6-2.3); Potassium 3.2 mmol/L (3.5-5.1); Sodium 138 mmol/L (135-145); eGFR > 60.00
[2025-02-22] MEDS: KCL 40 MEQ PO (06:18)
[2025-02-22] MEDS: LASIX 40 MG IV (08:01)
[2025-02-22] MEDS: TOPROL XL 100 MG PO ×2 (08:02→21:20)
--- NOTE | 2025-02-22 09:40 | W.PN.CD ---
Today's Communication / Plan
-
add aldactone in setting of hypokalemia
cont IV lasix, unknown dry weight
Impression / Plan
-
84-year-old man with reported history of atrial fibrillation on warfarin and newly diagnosed CHF who presents for fall and leg weakness. Found to have atrial fibrillation with RVR and CHF exacerbation.
Meat Processing Center Manager: GUERO [place]
Atrial fibrillation
-Unclear chronicity. Suspect persistent if not permanent. Follows with ATC. Records requested.
-Increased home metoprolol succinate to 100 mg twice daily for better rate control
-INR supratherapeutic on admission, now therapeutic. Resumed warfarin.
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
-severe, requiring hospitalization and IV lasix with close monitoring of labs/tele
-Outpatient echo added to chart from 02/08 showing LVEF 50%, moderate mR
-Examines overloaded with pulmonary edema on CXR and elevated NT proBNP
-Continue IV Lasix. Was net -4 L to twice daily dosing. Decreased to 40mg IV daily. Unclear dry weight.
-case mgmt consult placed for charbel fountain: patient wishes to defer to outpatient setting
-cont Toprol XL 100mg bid
-add aldactone in setting of hypokalemia
Abnormal troponin
-Suspect due to nonischemic myocardial injury in the setting of A-fib and heart failure
Moderate MR
-outpatient f/u
Physical Exam
Vital Signs/Labs
Vital Signs
Temp Pulse Resp BP Pulse Ox
98.1 F 100 14 117/91 91
02/22/25 07:01 02/22/25 07:01 02/22/25 07:01 02/22/25 04:08 02/22/25 07:01
02/21/25 02/22/25 02/23/25
06:59 06:59 06:59
Actual Weight 66.1 kg 58.4 kg
02/18/25 15:29
02/22/25 04:16
PT 26.4 Sec (11.4-14.6) H 02/22/25 04:16
INR 2.43 02/22/25 04:16
Magnesium 1.9 mg/dl (1.6-2.3) 02/22/25 04:16
Triglycerides 77 mg/dl (10-149) 02/19/25 04:06
LDL Cholesterol, Calc 100 mg/dl 02/19/25 04:06
VLDL Cholesterol, Calc 15 mg/dl (0-30) 02/19/25 04:06
HDL Cholesterol 44 mg/dl 02/19/25 04:06
02/18/25
15:29
Ydt-C-Vyficxkbeky Pept 8020
Physical Exam
Constitutional: No acute distress
EENT: Moist mucous membranes
Cardiovascular: Rhythm/rate is irregular, Pedal edema present, JVD present and Systolic murmur present
Respiratory: Respiratory effort normal and Lungs clear to auscul.
Neuro/Psych: Alert
Data Reviewed
-
Date of Service: February 22, 2025
EKG: Other (Tele: Afib, avg HR 100)
Echo: Report Reviewed by me
Labs: Labs Reviewed by me
[2025-02-22] MEDS: ALDACTONE 25 MG PO (11:00)
--- NOTE | 2025-02-22 12:52 | W.PN.HOSP.TC ---
Addendum entered and electronically signed by Brett Whitaker MD 02/22/25 21:20:
Sacrum Stage 1 Pressure Injury, POA
Original Note:
Today's Communication/Plan
-
Continue IV diuresis
Aldactone added which would help with CHF and also low potassium
Assessment / Plan
Assessment / Plan
Physical Exam
General: No Apparent Distress
HEENT: Moist Mucous Membranes
Respiratory: Crackles (Few bibasilar)
Cardiac: S1/S2, Irregular Rhythm and Tachycardic
GI: Soft. Nontender. Positive bowel sounds.
Musculoskeletal: Edema, Right Lower Extremity; and Edema, Left Lower Extremity (improved)
Neuro: Awake, Alert and Oriented x3
Psych: Calm; Negative Agitated
Assessment/Plan
Acute episode of dizziness/lightheadedness followed by a fall without loss of consciousness -- suspected that it may be A-fib RVR related.
Optimize A-fib and heart failure on follow-up.
Prior to this incident above, patient was independent with his activities of daily living.
Continue with PT evaluation
Atrial fibrillation with RVR
Currently with heart failure concurrently but hemodynamically stable. Known to have A-fib on Coumadin.
Off of IV Cardizem drip now. Continue with beta-naif which was increased
Echo from 02/08/25 (see update note from 02/21/25): LV size normal, wall thickness mildly increased, EF 50%, systolic function low normal, wall motion is normal, LA moderately dilated, RA mildly dilated, moderate MR, trivial pericardial effusion,
PASP moderately elevated
Continue Coumadin
TSH ok
Follow on telemetry.
Acute heart failure
Unknown EF.
Chest x-ray with moderate pulmonary edema. Blood pressure okay.
Improved weight.
Hold his torsemide. Continue IV Lasix -- decreased to 40 mg IV daily
Add Aldactone which would be good for CHF and for hypokalemia
Obtain recent echocardiogram report done last week from primary automobile carpets molder office.
Appreciate cardiology input
Hypokalemia
-Replaced
-Continue to monitor BMP
Abnormal troponins-troponin in indeterminate range. No chest pain. Suspect nonischemic myocardial injury from A-Fib and Heart Failure
Abnormal LFTs
Probably related to heart failure. Asymptomatic from GI standpoint. No hepatomegaly. Follow with diuresis and if no improvement consider abdominal imaging.
Moderate MR
-outpatient f/u
Full code
Discussed with RN
Anticipated Discharge: 24 - 48 hours
Subjective/Interval History
-
Date of Service: February 22, 2025
Patient was seen and examined. Still with chest wall pain worse with movement, and with shortness of breath similar to in the past several days.
Objective Data
-
Labs:
Laboratory Results
02/22/25
04:16
PT 26.4 H
INR 2.43
Sodium 138
Potassium 3.2 L
Chloride 101
Carbon Dioxide 34 H
BUN 33 H
Creatinine 0.8
Glucose 112 H
Calcium 9.0
Vital Signs:
Vital Signs
Temp Pulse Resp BP Pulse Ox
97.6 F 113 20 114/89 93
02/22/25 11:29 02/22/25 11:31 02/22/25 11:29 02/22/25 11:31 02/22/25 11:29
I&O
02/21/25 02/22/25 02/23/25
06:59 06:59 06:59
Intake Total 200 / 200
Output Total 1150 / 1150 950 / 950 850 / 850
Balance -950 / -950 -950 / -950 -850 / -850
--- NOTE | 2025-02-22 14:24 | PTCARENOTE ---
Pt received this am with no c/o of any pain or sob. Room air sat 97%. Remains in afib, rate in the 100's to 120's. Assisted oob to the chair with 1 assist and the walker. Pt tolerating oob well.
--- NOTE | 2025-02-22 15:41 | CM ---
awaiting bed avail for rehabs- referrals faxed, spoke to .
--- NOTE | 2025-02-22 15:48 | PN.CDI ---
CDI
- -
CDI:
Physician Documentation Request
Admit Date: 02/18/25 18:32
Dear Doctor Julianne,
Clinical Indicators:
Patient admitted with Atrial fibrillation with RVR.
02/21 WO RN skin/wound assessment: Sacrum Stage 1 Pressure Injury, POA
Treatment: Silicone border foam dressing,air cushion
Physician documentation of the type and location of wounds is required for compliant documentation. Based on the above clinical findings and your assessment, please provide the following in your progress note:
1. Location of the ulcer/wound, including laterality.
2. Type (etiology) of ulcer/wound:
- Pressure (decubitus) ulcer
- Other
3. If a pressure ulcer, please also include the stage* of the ulcer:
- Stage 1 - Skin intact, non-blanchable redness
- Stage 2 - Partial thickness loss of dermis, includes intact or open blister
- Stage 3 - Full thickness tissue not including bone, tendon or muscle
- Stage 4 - Full thickness tissue loss, including exposed bone, tendon or muscle
- Unstageable - Full thickness loss in which the base of the ulcer is covered by slough (yellow, alegria, chaves, green or brown) and/or eschar (alegria, brown or black) in the wound bed.
- Unable to determine
Use of terms such as suspected, likely, concern for, or probable (associated with a specific diagnosis that is being evaluated, monitored, or treated as if it exists) are acceptable and can be coded in the inpatient setting, when documented at the
time of discharge.
Thank you,
ELIZA Grubbs RN
CDI Specialist
available via tiger text
Please use your independent medical judgment in providing your response.
*Source: National Pressure Ulcer Advisory Panel (NPUAP)
[2025-02-22] MEDS: MELATONIN 3 MG PO (21:20)
[2025-02-22] MEDS: COUMADIN 2.5 MG PO (21:20)
[2025-02-23] VITALS (9 sets, daily range): BP systolic 97–131; BP diastolic 71–94; PULSE 98–133; BMI 22.3; BMI 21.7
[2025-02-23 05:03] LABS: INR 2.84; PT 29.8 Sec (11.4-14.6)
[2025-02-23 05:07] LABS: Blood Urea Nitrogen 30 mg/dl (9-20); Calcium 8.7 mg/dl (8.4-10.2); Carbon Dioxide 35 mmol/L (22-30); Chloride 101 mmol/L (98-107); Estimated Creatinine Clearance 50 ml/min; Glucose 105 mg/dl (70-99); Potassium 3.5 mmol/L (3.5-5.1); Sodium 139 mmol/L (135-145); eGFR > 60.00
--- NOTE | 2025-02-23 07:57 | W.PN.CD ---
Today's Communication / Plan
-
increase Metoprolol Succinate to 150mg bid
continue gentle diuresis with IV lasix and intensive monitoring.
reweigh to reassess for accuracy
add tubigrips
Impression / Plan
-
84-year-old man with reported history of atrial fibrillation on warfarin and newly diagnosed CHF who presents for fall and leg weakness. Found to have atrial fibrillation with RVR and CHF exacerbation.
Export Sales Manager: GUERO Raymond
Atrial fibrillation
-Unclear chronicity. Suspect persistent if not permanent. Follows with ATC. Records requested.
-Rates still increased, increase metoprolol succinate to 150 mg twice daily for better rate control
-INR supratherapeutic on admission, now therapeutic. Continue warfarin.
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
-severe, requiring hospitalization and IV lasix with close monitoring of labs/tele
-Outpatient echo added to chart from 02/08 showing LVEF 50%, moderate mR
-Examines overloaded with pulmonary edema on CXR and elevated NT proBNP
-Continue IV Lasix. Was net -4 L to twice daily dosing. Decreased to 40mg IV daily. Now negative, weight unreliable, will reweigh
-case mgmt consult placed for [employer]: patient wishes to defer to outpatient setting
-cont Toprol XL 150mg bid
- aldactone added in setting of hypokalemia
-add tubigrips
Abnormal troponin
-Suspect due to nonischemic myocardial injury in the setting of A-fib and heart failure
Moderate MR
-outpatient f/u
Physical Exam
Vital Signs/Labs
Vital Signs
Temp Pulse Resp BP Pulse Ox
97.8 F 86 17 121/87 94
02/23/25 07:14 02/23/25 07:14 02/23/25 07:14 02/22/25 21:20 02/23/25 07:14
02/22/25 02/23/25 02/24/25
06:59 06:59 06:59
Actual Weight 145 lb 11.609 oz 128 lb 11.999 oz 146 lb 9.718 oz
02/18/25 15:29
02/23/25 03:37
PT 29.8 Sec (11.4-14.6) H 02/23/25 03:37
INR 2.84 02/23/25 03:37
Magnesium 1.9 mg/dl (1.6-2.3) 02/22/25 04:16
Triglycerides 77 mg/dl (10-149) 02/19/25 04:06
LDL Cholesterol, Calc 100 mg/dl 02/19/25 04:06
VLDL Cholesterol, Calc 15 mg/dl (0-30) 02/19/25 04:06
HDL Cholesterol 44 mg/dl 02/19/25 04:06
02/18/25
15:29
Gfi-E-Xxbpciwcrli Pept 8020
Physical Exam
Constitutional: No acute distress
Cardiovascular: Systolic murmur absent, Diastolic murmur absent, Rhythm/rate is irregular and Pedal edema present (1-2+ b/l )
Respiratory: Respiratory effort normal, Lungs clear to auscul., Wheeze Absent, Crackles Absent and Rhonchi Absent
Neuro/Psych: AO x 3
Data Reviewed
-
Date of Service: February 23, 2025
Medical Decision Making: Review of Case with other Provider (reviewed with nursing and Dr Whitaker increase bb, continue diuresis reweigh)
--- NOTE | 2025-02-23 08:16 | W.PN.HOSP.TC ---
Today's Communication/Plan
-
Continue IV diuresis
Toprol XL increased for better rate control
Assessment / Plan
Assessment / Plan
Physical Exam
General: No Apparent Distress
HEENT: Moist Mucous Membranes
Respiratory: Crackles (Few bibasilar)
Cardiac: S1/S2, Irregular Rhythm and Tachycardic
GI: Soft. Nontender. Positive bowel sounds.
Musculoskeletal: Edema, Right Lower Extremity; and Edema, Left Lower Extremity (improved)
Neuro: Awake, Alert and Oriented x3
Psych: Calm; Negative Agitated
Assessment/Plan
Acute episode of dizziness/lightheadedness followed by a fall without loss of consciousness -- suspected that it may be A-fib RVR related.
Optimize A-fib and heart failure on follow-up.
Prior to this incident above, patient was independent with his activities of daily living.
Continue with PT evaluation
Atrial fibrillation with RVR
Currently with heart failure concurrently but hemodynamically stable. Known to have A-fib on Coumadin.
Was previously weaned off Cardizem drip. Continue with Toprol XL which was increased again today (02/23/25) to 150 mg BID -- may need to go up to 200 mg BID, but will monitor tele and heart rate. Avoiding Cardizem do to potential med interactions.
Discussed case with Dr. Eli on 02/23/25.
Echo from 02/08/25 (see update note from 02/21/25): LV size normal, wall thickness mildly increased, EF 50%, systolic function low normal, wall motion is normal, LA moderately dilated, RA mildly dilated, moderate MR, trivial pericardial effusion,
PASP moderately elevated
Continue Coumadin
TSH ok
Follow on telemetry.
Acute HFmrEF
Chest x-ray with moderate pulmonary edema. Blood pressure okay.
Improved weight.
Hold his torsemide. Continue Lasix 40 mg IV daily
Continue newly started Aldactone which would be good for CHF and for hypokalemia
Obtain recent echocardiogram report done last week from primary wafer production worker office.
Appreciate cardiology input
Continue Toprol XL 150 mg BID as above
Consideration for [facility] outpatient
Hypokalemia
-Replaced recently
-Continue Aldactone
-Continue to monitor BMP
Abnormal Troponins
-troponin in indeterminate range. No chest pain. Suspect nonischemic myocardial injury from A-Fib and Heart Failure
Abnormal LFTs
-Probably related to heart failure. Asymptomatic from GI standpoint. No hepatomegaly.
-Resolved
Moderate MR
-outpatient f/u
Full code
Discussed with RN and wafer production worker
Anticipated Discharge: 24 - 48 hours
Subjective/Interval History
-
Date of Service: February 23, 2025
Patient was seen and examined. He denied any new chest pain, still with shortness of breath at times, especially with movement.
Objective Data
-
Labs:
Laboratory Results
02/23/25
03:37
PT 29.8 H
INR 2.84
Sodium 139
Potassium 3.5
Chloride 101
Carbon Dioxide 35 H
BUN 30 H
Creatinine 0.9
Glucose 105 H
Calcium 8.7
Vital Signs:
Vital Signs
Temp Pulse Resp BP Pulse Ox
97.8 F 86 17 121/87 94
02/23/25 07:14 02/23/25 07:14 02/23/25 07:14 02/22/25 21:20 02/23/25 07:14
I&O
02/22/25 02/23/25 02/24/25
06:59 06:59 06:59
Output Total 950 / 950 1175 / 1175
Balance -950 / -950 -1175 / -1175
[2025-02-23] MEDS: TOPROL XL 100 MG PO ×2 (09:10→19:20)
[2025-02-23] MEDS: LASIX 40 MG IV (09:10)
[2025-02-23] MEDS: ALDACTONE 25 MG PO (09:10)
[2025-02-23] MEDS: TOPROL XL 50 MG PO ×2 (09:10→19:20)
[2025-02-23] MEDS: TOPROL XL PO (09:18)
--- NOTE | 2025-02-23 17:17 | CM ---
Addendum entered by Yaneth Ryder 02/23/25 17:24:
Original Note:
Reviewed chart. Received telephone call from [facility] who confirms ability to accept tomorrow if medically stable and approved by his insuranace. [facility] to start pre-cert. Sent clinical to [facility]
management. Await for determination. Met wit and Mrs. Sosa to review discharge plans. They are agreeable to going to [facility]. We reviewed transportation and out of pocket cost for wheelchair van. They are agreeable to wheelchair van.
Medical work-up in progress. The discharge plan is to go to [facility] tomorrow if medically stable and approved by insurance.
[2025-02-23] MEDS: COUMADIN 5 MG PO (19:20)
--- NOTE | 2025-02-23 20:00 | PTCARENOTE ---
report received from previous RN, walking rounds done. pt in bed, AAOx4, denies any pain at this time. AFIB on monitor, HR 110s. B/L radial and DP pulses palpable. heart tones clear. bilateral breath sounds present. POX 95% on room air. condom
catheter in place, pt voids CYU. +BS. foam dressing CDI to sacrum. PIV intact and patent. see worklist for full assessment, VS, and interventions. turning/repositioning pt Q2H and as needed.
[2025-02-23] MEDS: MELATONIN 3 MG PO (22:19)
[2025-02-24] VITALS (9 sets, daily range): BP systolic 93–126; BP diastolic 71–100; BMI 21.1
[2025-02-24 04:59] LABS: Blood Urea Nitrogen 34 mg/dl (9-20); Calcium 9.0 mg/dl (8.4-10.2); Carbon Dioxide 35 mmol/L (22-30); Chloride 101 mmol/L (98-107); Estimated Creatinine Clearance 61 ml/min; Glucose 104 mg/dl (70-99); Magnesium 1.8 mg/dl (1.6-2.3); Potassium 3.1 mmol/L (3.5-5.1); Sodium 139 mmol/L (135-145); eGFR > 60.00
[2025-02-24 05:00] LABS: INR 3.24; PT 33.4 Sec (11.4-14.6)
[2025-02-24] MEDS: ALDACTONE 25 MG PO (09:06)
[2025-02-24] MEDS: TOPROL XL 50 MG PO ×2 (09:06→19:50)
[2025-02-24] MEDS: TOPROL XL 100 MG PO ×2 (09:06→19:50)
[2025-02-24] MEDS: LASIX 40 MG IV (09:38)
[2025-02-24] MEDS: KCL 40 MEQ PO (09:38)
--- NOTE | 2025-02-24 10:13 | W.PN.HOSP.TC ---
Today's Communication/Plan
-
See plan
Assessment / Plan
Assessment / Plan
Physical Exam
General: No Apparent Distress
HEENT: Moist Mucous Membranes
Respiratory: Crackles (Few bibasilar)
Cardiac: S1/S2, Irregular Rhythm and Tachycardic
GI: Soft. Nontender. Positive bowel sounds.
Musculoskeletal: Edema, Right Lower Extremity; and Edema, Left Lower Extremity (improved)
Neuro: Awake, Alert and Oriented x3
Psych: Calm; Negative Agitated
Assessment/Plan
Acute episode of dizziness/lightheadedness followed by a fall without loss of consciousness -- suspected that it may be A-fib RVR related.
Optimize A-fib and heart failure on follow-up.
Prior to this incident above, patient was independent with his activities of daily living.
Continue with PT evaluation
Atrial fibrillation with RVR
Currently with heart failure concurrently but hemodynamically stable. Known to have A-fib on Coumadin.
Was previously weaned off Cardizem drip. Continue with Toprol XL which was increased again today (02/23/25) to 150 mg BID -- may need to go up to 200 mg BID, but will monitor tele and heart rate. Cardizem 120 mg daily added on 02/24/25 for better
rate control
Echo from 02/08/25 (see update note from 02/21/25): LV size normal, wall thickness mildly increased, EF 50%, systolic function low normal, wall motion is normal, LA moderately dilated, RA mildly dilated, moderate MR, trivial pericardial effusion,
PASP moderately elevated
Hold Coumadin -- based on recent CHF, initial INR on admission being supratherapeutic INR and increase in INR 02/24/25 morning (5 mg dose last evening) -- hold dose tonight and reassess in morning with next lab to determine if patient to resume 5 mg
dose for 02/24/25 -- when re-assessing tomorrow may consider reducing weekly dose 10-20% depending on INR and indication for Coumadin.
TSH ok
Follow on telemetry.
Acute HFmrEF
Chest x-ray with moderate pulmonary edema. Blood pressure okay.
Improved weight.
Hold his torsemide. Continue Lasix 40 mg IV daily --> transition to PO Lasix tomorrow 02/25/25
Continue newly started Aldactone which would be good for CHF and for hypokalemia
Obtain recent echocardiogram report done last week from primary analytics consultant office.
Appreciate cardiology input
Continue Toprol XL 150 mg BID as above
Consideration for Entresto and Farxiga outpatient
Hypokalemia
-Replaced recently
-Continue Aldactone
-Continue to monitor BMP
Abnormal Troponins
-troponin in indeterminate range. No chest pain. Suspect nonischemic myocardial injury from A-Fib and Heart Failure
Abnormal LFTs
-Probably related to heart failure. Asymptomatic from GI standpoint. No hepatomegaly.
-Resolved
Moderate MR
-outpatient f/u
Full code
Discussed with RN and analytics consultant
Anticipated Discharge: Within 24 hours
Subjective/Interval History
-
Date of Service: February 24, 2025
Patient was seen and examined. No new significant chest pain or worsening shortness of breath.
Objective Data
-
Labs:
Laboratory Results
02/24/25
04:20
PT 33.4 H
INR 3.24
Sodium 139
Potassium 3.1 L
Chloride 101
Carbon Dioxide 35 H
BUN 34 H
Creatinine 0.8
Glucose 104 H
Calcium 9.0
Vital Signs:
Vital Signs
Temp Pulse Resp BP Pulse Ox
97.7 F 97 20 115/87 91
02/24/25 07:31 02/24/25 08:00 02/24/25 07:31 02/24/25 07:31 02/24/25 09:00
I&O
02/23/25 02/24/25 02/25/25
06:59 06:59 06:59
Output Total 1175 / 1175 1200 / 1200
Balance -1175 / -1175 -1200 / -1200
--- NOTE | 2025-02-24 10:32 | W.PN.CD ---
Today's Communication / Plan
-
last day of IV diuresis
transition to PO lasix 40mg daily tomorrow (ordered)
assess for SNF/rehab tomorrow
Impression / Plan
-
84-year-old man with reported history of atrial fibrillation on warfarin and newly diagnosed CHF who presents for fall and leg weakness. Found to have atrial fibrillation with RVR and CHF exacerbation.
Senior Planner: [facility] [place]
Atrial fibrillation
-Unclear chronicity. Suspect persistent if not permanent. Follows with AT[facility]. Records requested.
-continue metoprolol succinate 150 mg twice daily
-add diltiazem 120mg daily for for better rate control
- Continue warfarin per INR
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
-diuresed 75.8 kg -->62.8 kg
-Outpatient echo added to chart from 02/08 showing LVEF 50%, moderate MR
-last day of IV diuresis, with close monitoring of labs/tele
-transition to PO lasix 40mg daily tomorrow
-cont Toprol XL 150mg bid
-aldactone added in setting of hypokalemia this admission
-patient and wish to defer entresto and farxiga to outpatient setting
Abnormal troponin
-Suspect due to nonischemic myocardial injury in the setting of A-fib and heart failure
Moderate MR
-outpatient f/u
Dispo
-tentative plan for SNF tomorrow
Physical Exam
Vital Signs/Labs
Vital Signs
Temp Pulse Resp BP Pulse Ox
97.7 F 97 20 115/87 91
02/24/25 07:31 02/24/25 08:00 02/24/25 07:31 02/24/25 07:31 02/24/25 09:00
02/23/25 02/24/25 02/25/25
06:59 06:59 06:59
Actual Weight 58.4 kg 62.8 kg
02/18/25 15:29
02/24/25 04:20
PT 33.4 Sec (11.4-14.6) H 02/24/25 04:20
INR 3.24 02/24/25 04:20
Magnesium 1.8 mg/dl (1.6-2.3) 02/24/25 04:20
Triglycerides 77 mg/dl (10-149) 02/19/25 04:06
LDL Cholesterol, Calc 100 mg/dl 02/19/25 04:06
VLDL Cholesterol, Calc 15 mg/dl (0-30) 02/19/25 04:06
HDL Cholesterol 44 mg/dl 02/19/25 04:06
02/18/25
15:29
Hcd-L-Itvqcwofbtk Pept 8020
Physical Exam
Constitutional: No acute distress and Comfortable
EENT: Moist mucous membranes
Cardiovascular: Rhythm/rate is irregular, Pedal edema present, JVD present and Systolic murmur present
Respiratory: Respiratory effort normal and Lungs clear to auscul.
Neuro/Psych: Alert
Data Reviewed
-
Date of Service: February 24, 2025
EKG: Other (Tele: A fib, avg HR ~100)
Labs: Labs Reviewed by me
--- NOTE | 2025-02-24 11:23 | CM ---
Reviewed chart. Received approval for SNF/Rehab. at [facility]. He was approved from 03/27 to 03/02/25 with NRD 03/03/25. The auth. number is [id number]. Spoke with Dr. Sinha. He is not ready today, but maybe tomorrow. Telephone call to [facility] to confirm ability to accept tomorrow. Met with and Mrs. Sosa to update them on tentative discharge tomorrow. Reviewed transportation and out of pocket cost. She is agreeable to a wheelchair van. Medical work-up in progress.
The discharge plan is to go to [facility] when medically stable.
[2025-02-24] MEDS: CARDIZEM CD 120 MG PO (11:59)
--- NOTE | 2025-02-24 16:14 | PTCARENOTE ---
Tele- afib. HR 70-100s. Assessment completed as documented. Pt OOB in chair w/ no complaints pain/discomfort. Plan of care reviewed w/ pt and spouse and verbalizes understanding. Currently OOB in chair; call neri w/in reach.
[2025-02-24 20:59] LABS: Blood Urea Nitrogen 35 mg/dl (9-20); Calcium 9.2 mg/dl (8.4-10.2); Carbon Dioxide 36 mmol/L (22-30); Chloride 100 mmol/L (98-107); Estimated Creatinine Clearance 54 ml/min; Glucose 140 mg/dl (70-99); Potassium 3.9 mmol/L (3.5-5.1); Sodium 137 mmol/L (135-145); eGFR > 60.00
[2025-02-24] MEDS: MELATONIN 3 MG PO (22:47)
--- NOTE | 2025-02-25 00:46 | PTCARENOTE ---
Assumed care of patient at change of shift. Pt AAOx2 disoriented to time. Patient ambulates w/ one assist and uses walker. Tele monitor remains Afib w/ occasional PVCs. Pt denies any pain or SOB. Bed/chair alarm active, call he within reach.
[2025-02-25 03:44] VITALS: BP 122/96
[2025-02-25 03:57] VITALS: BMI 20.9
[2025-02-25 04:21] LABS: INR 3.31; PT 33.9 Sec (11.4-14.6)
[2025-02-25 05:01] LABS: Blood Urea Nitrogen 31 mg/dl (9-20); Calcium 9.1 mg/dl (8.4-10.2); Carbon Dioxide 33 mmol/L (22-30); Chloride 103 mmol/L (98-107); Estimated Creatinine Clearance 61 ml/min; Glucose 112 mg/dl (70-99); Potassium 3.4 mmol/L (3.5-5.1); Sodium 138 mmol/L (135-145); eGFR > 60.00
[2025-02-25 07:14] VITALS: BP 119/87
[2025-02-25 08:44] VITALS: BP 117/88
[2025-02-25] MEDS: LASIX 40 MG PO (08:45)
[2025-02-25] MEDS: KCL 40 MEQ PO (08:45)
[2025-02-25] MEDS: TOPROL XL 100 MG PO (08:45)
[2025-02-25] MEDS: SENOKOT 17.2 MG PO (08:45)
[2025-02-25] MEDS: ALDACTONE 25 MG PO (08:45)
[2025-02-25] MEDS: TOPROL XL 50 MG PO (08:45)
[2025-02-25] MEDS: CARDIZEM CD 120 MG PO (08:46)
--- NOTE | 2025-02-25 10:44 | W.PN.HOSP.TC ---
Today's Communication/Plan
-
Discharge today
Assessment / Plan
Assessment / Plan
Physical Exam
General: No Apparent Distress
HEENT: Moist Mucous Membranes
Respiratory: Crackles (Few bibasilar)
Cardiac: S1/S2, Irregular Rhythm
GI: Soft. Nontender. Positive bowel sounds.
Musculoskeletal: Edema, Right Lower Extremity; and Edema, Left Lower Extremity (improved)
Neuro: Awake, Alert and Oriented x3
Psych: Calm; Negative Agitated
Assessment/Plan
Acute episode of dizziness/lightheadedness followed by a fall without loss of consciousness -- suspected that it may be A-fib RVR related.
Optimize A-fib and heart failure on follow-up.
Prior to this incident above, patient was independent with his activities of daily living.
Continue with PT evaluation
Atrial fibrillation with RVR
Currently with heart failure concurrently but hemodynamically stable. Known to have A-fib on Coumadin.
Was previously weaned off Cardizem drip. Continue with Toprol XL which was increased again on 02/23/25 to 150 mg BID; Cardizem 120 mg daily added on 02/24/25 for better rate control
Echo from 02/08/25 (see update note from 02/21/25): LV size normal, wall thickness mildly increased, EF 50%, systolic function low normal, wall motion is normal, LA moderately dilated, RA mildly dilated, moderate MR, trivial pericardial effusion,
PASP moderately elevated
Hold Coumadin -- based on recent CHF, initial INR on admission being supratherapeutic INR and increase in INR 02/24/25 morning (5 mg dose 02/23/25 evening) -- held dose 02/25/25 evening -- INR next day is still supratherapeutic -- consider reducing
weekly dose 10-20% depending on INR and indication for Coumadin.
TSH okay
Follow on telemetry.
Acute HFmrEF
Chest x-ray with moderate pulmonary edema. Blood pressure okay.
Improved weight.
Hold his torsemide. Status post Lasix 40 mg IV daily --> transitioned to PO Lasix 40 mg daily
Continue newly started Aldactone which would be good for CHF and for hypokalemia
Obtain recent echocardiogram report done last week from primary dental therapist office.
Appreciate cardiology input
Continue Toprol XL 150 mg BID as above
Consideration for [facility] outpatient, as per the wishes of patient and his
Hypokalemia
-Replaced recently
-Continue Aldactone
-Continue to monitor BMP
-Daily potassium supplement (small dose) on discharge until next BMP
Abnormal Troponins
-troponin in indeterminate range. No chest pain. Suspect nonischemic myocardial injury from A-Fib and Heart Failure
Abnormal LFTs
-Probably related to heart failure. Asymptomatic from GI standpoint. No hepatomegaly.
-Resolved
Moderate MR
-outpatient f/u
Full code
Discussed with RN and dental therapist
More than 30 minutes spent in discharge including
Final examination of the patient
Summarizing hospital stay
Instructions for continuing care to all relevant caregivers
Preparation of discharge records, prescriptions, and referral forms
Total time spent (in minutes): 35
Anticipated Discharge: Today
Subjective/Interval History
-
Date of Service: February 25, 2025
Patient was seen and examined. He denied any chest pain or shortness of breath.
Objective Data
-
Labs:
Laboratory Results
02/25/25
03:51
PT 33.9 H
INR 3.31
Sodium 138
Potassium 3.4 L
Chloride 103
Carbon Dioxide 33 H
BUN 31 H
Creatinine 0.8
Glucose 112 H
Calcium 9.1
Vital Signs:
Vital Signs
Temp Pulse Resp BP Pulse Ox
98.3 F 84 20 117/88 91
02/25/25 07:15 02/25/25 09:00 02/25/25 07:15 02/25/25 08:44 02/25/25 09:45
I&O
02/24/25 02/25/25 02/26/25
06:59 06:59 06:59
Intake Total 900 / 900
Output Total 1200 / 1200 2350 / 2350
Balance -1200 / -1200 -1450 / -1450
--- NOTE | 2025-02-25 10:55 | W.PN.CD ---
Today's Communication / Plan
-
-Continue metoprolol succinate 150 mg twice daily.
-Continue diltiazem 120 mg daily.
-Now transitioned to Lasix 40 mg PO daily, which should be his outpatient regimen.
-Outpatient f/u With primary Power System Engineer.
Impression / Plan
-
84-year-old man with reported history of atrial fibrillation on warfarin and newly diagnosed CHF who presents for fall and leg weakness. Found to have atrial fibrillation with RVR and CHF exacerbation.
Power System Engineer: GUERO [place]
Atrial fibrillation
-Unclear chronicity. Suspect persistent if not permanent. Follows with ATC.
-Continue metoprolol succinate 150 mg twice daily.
-Continue diltiazem 120 mg daily.
-Continue warfarin (goal INR 2.0-3.0).
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
-diuresed 75.8 kg -->62.8 kg
-Outpatient echo added to chart from 02/08 showing LVEF 50%, moderate MR
-Now transitioned to Lasix 40 mg PO daily, which should be his outpatient regimen.
-Continue current dose of Toprol XL.
-Continue aldactone.
-patient and wish to defer entresto and farxiga to outpatient setting
Abnormal troponin
-Suspect due to nonischemic myocardial injury in the setting of A-fib and heart failure
Moderate MR
-Outpatient f/u With primary Power System Engineer.
Dispo
-tentative plan for SNF
Physical Exam
Vital Signs/Labs
Vital Signs
Temp Pulse Resp BP Pulse Ox
98.3 F 84 20 117/88 91
02/25/25 07:15 02/25/25 09:00 02/25/25 07:15 02/25/25 08:44 02/25/25 09:45
02/24/25 02/25/25 02/26/25
06:59 06:59 06:59
Actual Weight 62.8 kg 62.3 kg
02/18/25 15:29
02/25/25 03:51
PT 33.9 Sec (11.4-14.6) H 02/25/25 03:51
INR 3.31 02/25/25 03:51
Magnesium 1.8 mg/dl (1.6-2.3) 02/24/25 04:20
Triglycerides 77 mg/dl (10-149) 02/19/25 04:06
LDL Cholesterol, Calc 100 mg/dl 02/19/25 04:06
VLDL Cholesterol, Calc 15 mg/dl (0-30) 02/19/25 04:06
HDL Cholesterol 44 mg/dl 02/19/25 04:06
02/18/25
15:29
Ubh-M-Xnlxorthzit Pept 8020
Physical Exam
Constitutional: No acute distress and Comfortable
EENT: Anicteric
Cardiovascular: Pedal edema is absent, Rhythm/rate is irregular, Systolic murmur present (07/05) and S1S2 is normal
Respiratory: Respiratory effort normal and Lungs clear to auscul.
GI: Soft
Neuro/Psych: AO x 3
Other: Skin (Warm, dry, intact)
Data Reviewed
-
Date of Service: February 25, 2025
EKG: Tracing Personally Visualized and interpreted (Telemetry: Rate-controlled atrial fibrillation)
Labs: Labs Reviewed by me
[2025-02-25 11:37] VITALS: BP 106/88
--- NOTE | 2025-02-25 11:44 | CM ---
Reviewed chart. Received message from attending physician that Mr. Sosa is ready for transfer to [facility] today. Unit Sec. made wheelchair arrangements with Acute Care for transfer today at 4:00 p.m. Telephone call to Mr. Sosa to
update her on transfer date and time. Also reviewed cost of wheelchair van. Telephone call to [facility] to update them with transfer date and time. The report number is ([phone] and the fax number is ([phone]) Update attending
physician with transfer date and time. Medical work-up in progress. The discharge plan is to go to [facility] today if medically stable.
[2025-02-25 15:07] VITALS: BP 104/68
--- NOTE | 2025-02-25 15:08 | W.DCSUMMARY ---
Discharge Summary
Discharge Data
Date of Admission: 02/18/25
Date of Discharge: 02/25/25
Total time spent discharging patient (in min): 35
-
Pending Results: No
Hospital Course
84 y/o male with past medical history of atrial fibrillation on warfarin and possible newly diagnosed congestive heart failure, presented with acute episode of dizziness/lightheadedness followed by a fall without loss of consciousness, which was
suspected to be related to atrial fibrillation with rapid ventricular response. Patient was started on Cardizem Drip and intravenous diuresis. Patient's home Torsemide was held. Patient's Warfarin was initially held given his supratherapeutic INR.
Patient's home Toprol XL was increased to 100 mg twice daily, but eventually to 150 mg twice daily for better rate control. Patient's records of echocardiogram from 02/08/25 was faxed from [facility] cardiology office, and that echo showed LV size normal,
wall thickness mildly increased, EF 50%, systolic function low normal, wall motion is normal, LA moderately dilated, RA mildly dilated, moderate MR, trivial pericardial effusion and PASP moderately elevated. Patient was placed on Aldactone in the
setting of hypokalemia and his heart failure. Later Cardizem 120 mg daily was added for better rate control. Patient was eventually transitioned to PO Lasix. Patient's Coumadin was later able to be resumed after the INR came down, but the Coumadin
had to be held again given supratherapeutic INR -- this would have to be closely re-evaluated outpatient. Patient was stable for discharge.
Discharge Plan
-
Patient Disposition: [facility]
Discharge Diagnosis/Procedures: Acute episode of dizziness/lightheadedness followed by a fall without loss of consciousness -- suspected that it may be A-fib RVR related
Atrial fibrillation with Rapid Ventricular Response
Acute HFmrEF
Hypokalemia
Abnormal LFTs
Moderate MR
Abnormal Troponins
Diffuse interstitial opacification on chest x-ray (as per radiologist)
Moderate left and small right pleural effusions on chest x-ray (as per radiologist)
Diffuse osteopenia on chest x-ray (as per radiologist)
Compression deformities within the lower thoracic spine with increased thoracic kyphosis (on chest x-ray, as per radiologist)

CT Head without contrast (as per radiologist's report):
'FINDINGS:
There is moderate ventricle sulcal prominence consistent with atrophy. There is moderate decreased attenuation about the lateral ventricles consistent with periventricular small vessel ischemic disease There is no intra- or extra-axial mass,
hemorrhage, or fluid collection. There is no midline shift nor mass effect. Visualized paranasal sinuses are free of mucosal disease.
IMPRESSION:
No acute intracranial abnormality noted.
Moderate atrophy.
Moderate periventricular small vessel ischemic disease'
Condition: Fair
Diet: Low Fat, Low Cholesterol, 2 Gram Sodium and Restrict fluids to 64 oz
Activity: With assistance
Driving Restrictions: No driving
Blood Work: CBC, CMP and Magnesium in 2 to 3 days
Other Services: PT
Specialty Instructions: Weigh Daily- Call MD for wt gain/loss 3 lbs overnight/5 lbs in 1 week
Activity Restrictions/Additional Instructions:
Follow-up closely (within 1 to 3 weeks) with your outpatient [employer] nurse.
Wound Care Instructions
L scalp/forehead: clean with soap and water, small dry dressing daily.
Sacrum: clean with soap and water, barrier cream daily and prn soilage
Air cushion when sitting-*Can take upon discharge
turn frequently when in bed
increase protein in diet
Follow up with [employer]
Referrals:
Carina Smalls MD [Family Provider, Family Practice] - in less than 1 week
Referral Note: Hospitalization Follow-Up
Berto Damon MD [Active, Pulmonary Medicine] - in one to two weeks
Referral Note: Follow-up of Pleural Effusions on Hospital Imaging January 2025
Additional Discharge Medication Instructions: Diltiazem, Furosemide, and Spironolactone are new medications. Torsemide has been stopped.
Metoprolol Succinate has been increased to 150 mg BID (from 100 mg daily).
Low dose potassium is a new medication for the next 4 days -- CMP needs to be repeated in 2 to 3 days and decision to stop potassium medication can be made depending on how high or low the serum potassium level is.
Warfarin is on hold given supratherapeutic INR in the hospital -- recheck INR tomorrow 02/26/25 and consider resuming Coumadin at a lower (10% to 20% lower) cumulative weekly dose to maintain INR in therapeutic range.
Prescriptions:
New
potassium chloride 10 mEq capsule, extended release
10 meq PO DAILY Qty: 4 0RF
spironolactone 25 mg Tablet
25 mg PO DAILY Qty: 30 1RF
diltiazem HCl 120 mg Capsule,Extended Release 24hr
120 mg PO DAILY Qty: 30 1RF
furosemide 40 mg Tablet
40 mg PO DAILY Qty: 30 1RF
metoprolol succinate 100 mg Tablet Extended Release 24 Hr
100 mg PO BID Qty: 60 1RF
metoprolol succinate 50 mg Tablet Extended Release 24 Hr
50 mg PO BID Qty: 60 1RF
Continued
sennosides [senna] 8.6 mg Tablet
17.2 mg PO DAILYPRN PRN (Reason: constipation)
therapeutic multivitamin Tablet
1 tab PO DAILY
Held
warfarin 2.5 mg Tablet
2.5 mg PO TUTHSA@2000
Hold Instructions: Resume on 02/27/25. Decide when to resume this medication based on INR level
warfarin 2.5 mg Tablet
5 mg PO SUMOWEFR@1999
Hold Instructions: Resume on 02/27/25. Decide when to resume this medication based on INR level
Discontinued
torsemide 20 mg Tablet
20 mg PO DAILY
acetaminophen [Tylenol] 325 mg Tablet
650 mg PO Q6HPRN PRN (Reason: mild pain)
metoprolol succinate [Toprol XL] 50 mg Tablet Extended Release 24 Hr
50 mg PO QPM
metoprolol succinate [Toprol XL] 50 mg Tablet Extended Release 24 Hr
100 mg PO DAILY
Discharge Orders:
Discharge Patient (As Directed); Ordered 02/25/25
Ordered By: Brett Whitaker
Care Plan Goals
Care Plan Goals:
Problem: Readiness for enhanced knowledge related to diagnosis and treatment plan
Goal: Understand your diagnosis and treatment plan needs, including medications if applicable.
Instructions: Know your diagnosis, underlying causes and treatment plan options, including medications if applicable. Consult with your health care team to learn about your diagnosis and treatment plan, including medications if applicable.
Discharge Date and Time
Discharge Date/Time: 02/25/25 16:30
Print Language: UKRAINIAN
--- NOTE | 2025-02-25 16:43 | PTCARENOTE ---
Pt d/c to [facility]. Report given to Sarai Mathis RN.
== END 2025-02-25 16:30 | DRG 291 ==
LOC: IVU 18:32
PROVIDERS: ADMITTING PHYSICIAN Internal Medicine; ATTENDING PHYSICIAN Hospitalist; CONSULT PHYSICIAN Student in an Organized Health Care Education/Training Program; EMERGENCY PHYSICIAN Emergency Medicine; FAMILY PHYSICIAN Family Medicine
DX: I11.0 Hypertensive heart disease with heart failure (principal); I50.21 Acute systolic (congestive) heart failure; I48.21 Permanent atrial fibrillation; I5A Non-ischemic myocardial injury (non-traumatic); E87.6 Hypokalemia; L89.151 Pressure ulcer of sacral region, stage 1; M85.80 Other specified disorders of bone density and structure, unspecified site; M40.204 Unspecified kyphosis, thoracic region; R79.1 Abnormal coagulation profile; F03.90 Unspecified dementia, unspecified severity, without behavioral disturbance, psychotic disturbance, mood disturbance, and anxiety; W01.0XXA Fall on same level from slipping, tripping and stumbling without subsequent striking against object, initial encounter; Y93.9 Activity, unspecified; Y92.009 Unspecified place in unspecified non-institutional (private) residence as the place of occurrence of the external cause; Z79.01 Long term (current) use of anticoagulants
CPT/HCPCS: 70450; 71046; 80048; 80053; 80061; 83735; 83880; 84443; 84484; 85025; 85610; 93005; 96374; 96376; 97116; 97163; 97167; 97530; 97535; 99291